=== PATIENT | male | born 1960 | race Caucasian/White ===

== ENCOUNTER 2016-12-12 22:11 | Inpatient (IN) | payer OTHER ==
--- NOTE | ~2016-12-12 | PN ---
Unit #: [id number] #: [id number] Patient: FLORY MUÑOZ [id number] [facility] [address] [place] [address] [id number] I MR#: [id number] NAME: FLORY MUÑOZ ROOM: 86 Age: 56 Sex: M Admission Date: 12/12/2016 : 1960 Attending Physician: Wu Leone M.D. Admitting Physician: Wu Leone M.D. Primary Care Physician: Primary Care Physician Maia JACOBO NOTES DATE 12/17/2016 DISCUSSION The patient requesting "a nerve pill" today. I have explained to the patient that he is already prescribed Neurontin and p.r.n. Vistaril and that other such medication will be provided. He states that he should have a bed open by tomorrow in a local shelter house. Dictated by... Wu Leone M.D. CB/altagracia TD: 12/17/2016 20:43 JOB #: [id number] DARINEL JACOBO NOTES X Wu Leone MD PROGRESS NOTE
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
--- NOTE | ~2016-12-12 | HP ---
Unit #: [id number] #: [id number] Patient: FLORY MUÑOZ [id number] [place] [address] [id number] I MR#: [id number] NAME: FLORY MUÑOZ ROOM: P176 Age: 56 Sex: M Admission Date: 12/12/2016 : 1960 Attending Physician: Wu Leone M.D. Admitting Physician: Wu Leone M.D. Primary Care Physician: Primary Care Physician No HISTORY AND PHYSICAL HISTORY OF PRESENT ILLNESS Flory is a 56 year old admitted to [facility] because of his continued abuse of alcohol. He has had numerous admissions to this facility for treatment of the same. PAST MEDICAL HISTORY 1. Long history of alcohol abuse. 2. History of withdrawal seizures. 3. Hyperlipidemia. PAST SURGICAL HISTORY T and A. ALLERGIES No known drug allergies. SOCIAL HISTORY Smokes 1 pack per day. Drinks at least a case of beer on a daily basis and denies illicit drug use. FAMILY HISTORY Medically noncontributory. REVIEW OF SYSTEMS CONSTITUTIONAL: No fever or chills. HEENT: Denies any sore throat, ear pain or runny nose. CARDIOVASCULAR: Denies chest pain, irregular heart rhythm or palpitations. CHEST: Denies shortness of breath or cough. No hemoptysis. GASTROINTESTINAL: Denies nausea, vomiting, diarrhea or chronic constipation. ENDOCRINE: Denies history of increased thirst or urination. No recent significant weight loss or gain. GENITOURINARY: Denies dysuria, frequency, or hematuria. SKIN: Denies any rashes. He did sustain a laceration over his left brow some days ago. Stitches are in place. He has no complaints. HEMATOLOGIC: Denies history of increased bleeding or bruising. MUSCULOSKELETAL: Denies any hot, swollen joints. No generalized muscle pain. NEUROLOGIC: Denies problems with vision or speech. No frequent, severe headaches. No numbness, tingling or weakness in any extremities. Denies loss of bladder or bowel control. CURRENT MEDICATIONS Unit #: [id number] #: [id number] Patient: FLORY MUÑOZ 1. Detox protocol. 2. Neurontin 300 mg b.i.d. 3. Claritin 10 mg daily. 4. Celexa 20 mg daily. PHYSICAL EXAMINATION GENERAL: Alert, well-nourished, appearing much older than his stated age of 56, in no apparent distress. VITAL SIGNS: Blood pressure 136/90, heart rate 80, respirations 16, temperature 98.6. WEIGHT: 173. HEIGHT: 5 feet 10 inches. SKIN: Warm and dry without rash. He has a laceration over his left brow. There is very good scab formation. The scab appears old and has started to slough off. Blue ethilon sutures are in place. No increased redness, swelling, heat or pus is noted. HEENT: Normocephalic. TMs not viewed. Oral and nasal passages clear. Conjunctivae clear. PERRLA. EOMs intact. NECK: Supple without lymphadenopathy or thyromegaly. HEART: Regular rate and rhythm without murmur. LUNGS: Clear. ABDOMEN: Soft, nontender. : Not done. EXTREMITIES: No evidence of cyanosis, clubbing or edema. Moves all without focal deficit. NEUROLOGICAL: Grossly within normal limits. Cranial Nerves: II: Visual myers are intact. III, IV AND : Extraocular movements are intact. Pupils are equal, round and reactive to light. V: Facial sensation is grossly normal. VII: Facial movements and expression are normal. VIII: Auditory acuity grossly intact. IX, X: Uvula is midline. Phonation is normal. XI: Patient shrugs shoulders and turns head normally. XII: Tongue protrudes in the midline. Sensory and Motor Function: Sensory and motor sensation is grossly normal. Motor: moves all extremities well. Coordination: Gait is normal. Deep Tendon Reflexes: Intact. IMPRESSION 1. Psychiatric admission. 2. Laceration over his left brow sustained some days prior to this admission. RECOMMENDATIONS PSYCHIATRIC: Per psychiatrist. MEDICAL: 1. See no contraindications to participate in facility's activities. 2. Suture removal 7 days after they were placed. MEDICAL PROGNOSIS Good. MEDICAL CONDITION Stable. Dictated by... Unit #: [id number] #: [id number] Patient: TONIFLORY P.A.-C. for Jasmin Garza/eleonora TD: 12/13/2016 22:16 JOB #: [id number] HISTORY AND PHYSICAL X Lakeisha Bean HISTORY AND PHYSICAL
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
--- NOTE | ~2016-12-12 | PN ---
Unit #: [id number] #: [id number] Patient: FLORY MUÑOZ [id number] [facility] [address] [place] [address] [id number] I MR#: [id number] NAME: FLORY MUÑOZ ROOM: 86 Age: 56 Sex: M Admission Date: 12/12/2016 : 1960 Attending Physician: Wu Leone M.D. Admitting Physician: Wu Leone M.D. Primary Care Physician: Primary Care Physician Maia TENA PROGRESS NOTES DATE 12/15/2016 DISCUSSION The patient is in brighter spirits today. He is more hopeful today and reports less in the way of hopelessness. His detox continues uneventfully. He is hopeful that he will be able to gain access to a new long term house upon his discharge. Dictated by... Wu Leone M.D. CB/eleonora TD: 12/15/2016 18:25 JOB #: [id number] [facility] PROGRESS NOTES X Wu Leone MD PROGRESS NOTE
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
--- NOTE | ~2016-12-12 | PN ---
Unit #: [id number] #: [id number] Patient: FLORY MUÑOZ [id number] [facility] [address] [place] [address] [id number] I MR#: [id number] NAME: FLORY MUÑOZ ROOM: 86 Age: 56 Sex: M Admission Date: 12/12/2016 : 1960 Attending Physician: Wu Leone M.D. Admitting Physician: Wu Leone M.D. Primary Care Physician: Primary Care Physician Maia TENA PROGRESS NOTES DATE 12/16/2016 DISCUSSION The patient is resting comfortably today and offers no new complaints. His detox continues uneventfully. Dictated by... Wu Leone M.D. CB/eleonora TD: 12/16/2016 16:28 JOB #: [id number] [facility] PROGRESS NOTES X Wu Leone MD PROGRESS NOTE
[2016-12-13 09:36] LABS: URINE APPEARANCE CLEAR; URINE BILIRUBIN NEG (NEG); URINE BLOOD NEG (NEG); URINE COLOR YELLOW; URINE GLUCOSE NEG (NEG); URINE KETONE NEG (NEG); URINE LEUKOCYTE ESTERASE NEG (NEG); URINE NITRATE NEG (NEG); URINE PROTEIN NEG (NEG); URINE SPECIFIC GRAVITY 1.014 (1.003-1.035); URINE UROBILINOGEN 0.2 MG/DL (NEG)
[2016-12-13 09:40] LABS: BASOPHIL# 0.1 X10e3 (0-0.3); EOSINOPHIL# 0.3 X10e3 (0-0.7); HEMATOCRIT 42.4 % (38.0-50.0); HEMOGLOBIN 14.3 gm/dL (13.0-16.0); LYMPHOCYTE# 1.4 X10e3 (1.0-3.5); LYMPHOCYTE% 25.1 % (17.0-45.0); MEAN CORPUSCULAR HEMOGLOBIN 29.1 PG (28-34); MEAN CORPUSCULAR HGB CONC 33.8 g/dL (30-36); MEAN PLATELET VOLUME 8.8 FL (6.5-11.5); MONOCYTE# 0.5 X10e3 (0-1.0); MONOCYTE% 8.3 % (3.0-12.0); NEUTROPHIL# 3.2 X10e3 (1.5-7.1); NEUTROPHIL% 59.6 % (40-75); PLATELET COUNT 181 X10e3 (140-420); RED BLOOD COUNT 4.94 X10e (3.90-5.60); RED CELL DISTRIBUTION WIDTH 16.2 % (11.0-15.5); WHITE BLOOD COUNT 5.4 X10e3 (4.0-10.5)
[2016-12-13 09:42] LABS: DIFF IND NO
[2016-12-13 10:32] LABS: ALBUMIN SERUM 3.5 g/dL (3.5-5.0); ALKALINE PHOSPHATASE 79 U/L (32-92); ALT (SGPT) 27 U/L (10-40); AST (SGOT) 28 U/L (10-42); BILIRUBIN,TOTAL 0.8 mg/dL (0.2-2.0); BLOOD UREA NITROGEN 8 mg/dL (9-23); CALCIUM SERUM 9.4 mg/dL (8.4-10.2); CARBON DIOXIDE 25 mmol/L (22-31); CHLORIDE 105 mmol/L (100-111); CREATININE SERUM 0.5 mg/dL (0.6-1.4); GLOM FILT RATE Estimated ABOVE60 mL/min (>60); GLUCOSE FASTING 88 mg/dL (70-110); POTASSIUM 4.3 mmol/L (3.5-5.1); PROTEIN TOTAL SERUM 6.3 g/dL (6.0-8.3); SODIUM 143 mmol/L (135-145)
[2016-12-13 11:08] LABS: AMPHETAMINE NEG (NEG); BARBITURATES NEG (NEG); BENZODIAZEPINES POS (NEG); COCAINE NEG (NEG); MARIJUANA NEG (NEG); OPIATES NEG (NEG); TRICYCLIC ANTIDEPRESSANTS NEG (NEG); U METHADONE NEG (NEG)
[2016-12-13 13:54] LABS: THYROID STIMULATING HORMONE 1.97 uIU/ml (0.34-5.60)
[2016-12-13 14:01] LABS: FREE THYROXIN (T4) 0.77 ng/dL (0.58-1.64)
== END 2016-12-18 16:00 | disposition home or self-care (01) | DRG 897 ==
LOC: P1E 22:11
PROVIDERS: Specialist
PROC: HZ2ZZZZ Detoxification Services for Substance Abuse Treatment (ICD-10-PCS; principal; 2016-12-12)
DX: F10.20 Alcohol dependence, uncomplicated (principal); R45.851 Suicidal ideations; F34.1 Dysthymic disorder; E78.5 Hyperlipidemia, unspecified; Z59.0 Homelessness; F17.200 Nicotine dependence, unspecified, uncomplicated; S01.81XA Laceration without foreign body of other part of head, initial encounter
CPT/HCPCS: 80053; 80307; 81003; 84439; 84443; 85025; 86592

== ENCOUNTER 2017-05-15 18:47 | Inpatient (IN) | payer OTHER ==
[~2017-05-15] VITALS: Ht 177.8 cm; Wt 81.6 kg
--- NOTE | ~2017-05-15 | DS ---
Unit #: [id number] #: [id number] Patient: FLORY MUÑOZ [id number] [place] [address] [id number] I MR#: [id number] NAME: FLORY MUÑOZ ROOM: 81 Age: 57 Sex: M Admission Date: 05/15/2017 : 1960 Discharge Date: 05/18/2017 Attending Physician: Wu Leone M.D. Primary Care Physician: Primary Care Physician No DISCHARGE SUMMARY REASON FOR ADMISSION The patient is a 57-year-old white male, admitted for alcohol detox. HOSPITAL COURSE The patient was admitted to the [facility] unit and placed on routine detoxification protocol. His home medications including Celexa, Mobic, Wellbutrin, Vistaril, Flexeril, Lipitor were continued. He was begun on Robitussin DM for cough. The patient's detox was a brief and uneventful one. By 05/18/2017, the patient's detox was complete. He exhibited no signs or symptoms of withdrawal. Denied suicidal ideation. Discharge was ordered. FINAL DIAGNOSES Alcohol use disorder, dysthymic disorder, dyslipidemia, and upper respiratory infection. DISPOSITION ON DISCHARGE The patient is discharged on the following medications: Mobic 15 mg b.i.d. for osteoarthritis, Celexa 20 mg daily for depression, Wellbutrin 100 mg b.i.d. for depression, Vistaril 50 mg q.6 hours p.r.n. anxiety, Flexeril 10 mg t.i.d. for muscle relaxation, Lipitor 80 mg at bedtime for dyslipidemia, Robitussin DM for cough, Neosporin apply to affected areas b.i.d. for skin wounds. DISCHARGE INSTRUCTIONS No dietary or physical restrictions were placed on the patient at the time of discharge. FOLLOWUP Followup will take place through the auspices of community mental health resources. PROGNOSIS The patient's prognosis is considered fair. Dictated by... Wu Leone M.D. CB/india TD: 05/20/2017 11:19 Unit #: [id number] #: [id number] Patient: FLORY MUÑOZ JOB #: [id number] DISCHARGE SUMMARY Page 1 of 1 X Wu Leone MD DISCHARGE SUMMARY
--- NOTE | ~2017-05-15 | PN ---
Unit #: [id number] #: [id number] Patient: FLORY MUÑOZ [id number] [facility] [address] [place] [address] [id number] I MR#: [id number] NAME: FLORY MUÑOZ ROOM: 81 Age: 57 Sex: M Admission Date: 05/15/2017 : 1960 Attending Physician: uW Leone M.D. Admitting Physician: Wu Leone M.D. Primary Care Physician: Primary Care Physician Maia TENA PROGRESS NOTES DATE 05/17/2017 DISCUSSION The patient continues to complain of significant symptoms of alcohol withdrawal. He states that he is expressing interest in placement in a long-term house following discharge and states that he has discussed that with his psychologist social. Dictated by... Wu Leone M.D. CB/altagracia TD: 05/17/2017 22:44 JOB #: [id number] DARINEL PROGRESS NOTES Page 1 of 1 X Wu Leone MD PROGRESS NOTE
--- NOTE | ~2017-05-15 | HP ---
Unit #: [id number] #: [id number] Patient: FLORY MUÑOZ [id number] [place] [address] [id number] I MR#: [id number] NAME: FLORY MUÑOZ ROOM: P181 Age: 57 Sex: M Admission Date: 05/15/2017 : 1960 Attending Physician: Wu Leone M.D. Admitting Physician: Wu Leone M.D. Primary Care Physician: Primary Care Physician No HISTORY AND PHYSICAL HISTORY OF PRESENT ILLNESS Flory is a 57 year old admitted to [facility] because of his continued abuse of alcohol. He has had other admissions to this facility for the same. PAST MEDICAL HISTORY 1. Long history of alcohol abuse. 2. History of withdrawal seizures. 3. Hyperlipidemia. PAST SURGICAL HISTORY T & A. ALLERGIES No known drug allergies. SOCIAL HISTORY Smokes one pack per day. Drinks at least a case of beer on a daily basis and denies illicit drug use. FAMILY HISTORY Medically noncontributory. REVIEW OF SYSTEMS CONSTITUTIONAL: No fever or chills. HEENT: Denies any sore throat, ear pain or runny nose. CARDIOVASCULAR: Denies chest pain, irregular heart rhythm or palpitations. CHEST: Denies shortness of breath or cough. No hemoptysis. GASTROINTESTINAL: Denies nausea, vomiting, diarrhea or chronic constipation. ENDOCRINE: Denies history of increased thirst or urination. No recent significant weight loss or gain. GENITOURINARY: Denies dysuria, frequency, or hematuria. SKIN: Denies any rashes. HEMATOLOGIC: Denies history of increased bleeding or bruising. MUSCULOSKELETAL: Denies any hot, swollen joints. No generalized muscle pain. NEUROLOGIC: Denies problems with vision or speech. No frequent, severe headaches. No numbness, tingling or weakness in any extremities. Denies loss of bladder or bowel control. CURRENT MEDICATIONS 1. Detox protocol. Unit #: [id number] #: [id number] Patient: FLORY MUÑOZ 2. Lipitor 80 mg q day. 3. Celexa 20 mg q day. 4. Wellbutrin 100 mg b.i.d. 5. Mobic 15 mg b.i.d. PHYSICAL EXAMINATION GENERAL: Alert, appearing much older than his stated age of 57, in no apparent distress. VITAL SIGNS: Blood pressure 156/88, heart rate 100, respirations 16, temperature 98.6. WEIGHT: 180. HEIGHT: 5 foot 10 inches. SKIN: He has blisters on his feet. HEENT: Normocephalic. TMs not viewed. Oral and nasal passages clear. Conjunctivae clear. Pupils equal, round and reactive to light and accommodation. Extraocular movements intact. NECK: Supple without lymphadenopathy or thyromegaly. HEART: Regular rate and rhythm without murmur. LUNGS: Clear. ABDOMEN: Soft, nontender. : Not done. EXTREMITIES: No evidence of cyanosis, clubbing or edema. Moves all extremities without focal deficit. NEUROLOGICAL: Grossly within normal limits. Cranial Nerves: II: Visual myers are intact. III, IV AND : Extraocular movements are intact. Pupils are equal, round and reactive to light. V: Facial sensation is grossly normal. VII: Facial movements and expression are normal. VIII: Auditory acuity grossly intact. IX, X: Uvula is midline. Phonation is normal. XI: Patient shrugs shoulders and turns head normally. XII: Tongue protrudes in the midline. Sensory and Motor Function: Sensory and motor sensation is grossly normal. Motor: moves all extremities well. Coordination: Gait is normal. Deep Tendon Reflexes: Intact. IMPRESSION 1. Psychiatric admission. 2. Blisters on his feet. RECOMMENDATIONS PSYCHIATRIC: Per psychiatrist. MEDICAL: 1. I see no contraindications to participating in facility's activities. 2. Neosporin ointment to areas on his feet b.i.d. MEDICAL PROGNOSIS Good. MEDICAL CONDITION Stable. Dictated by... Laxmi BegumAPinky. for Unit #: [id number] #: [id number] Patient: FLORY MUÑOZ Jasmin Garza TD: 05/16/2017 21:02 JOB #: [id number] HISTORY AND PHYSICAL Page 1 of 1 X Lakeisha Bean HISTORY AND PHYSICAL
--- NOTE | ~2017-05-15 | PA ---
Unit #: [id number] #: [id number] Patient: FLORY MUÑOZ [id number] [place] [address] [id number] I MR#: [id number] NAME: FLORY MUÑOZ ROOM: P181 Age: 57 Sex: M Admission Date: 05/15/2017 : 1960 Date of Assessment: 05/16/2017 Attending Physician: Wu Leone M.D. Admitting Physician: Wu Leone M.D. Primary Care Physician: Primary Care Physician No PSYCHIATRIC ASSESSMENT IDENTIFYING INFORMATION The patient is a 57-year-old white male admitted with reported with recurrent abuse of alcohol. CHIEF COMPLAINT None given. INFORMANT Patient, reliability is fair. HISTORY OF PRESENT ILLNESS The patient is a 57-year-old white male with a history of multiple previous admission to this facility. He was last discharged from this facility on 12/08/2016. The patient reports that he has been drinking heavily again and reports suicidal ideation with plan to "drink himself to ." When seen today, the patient is sleeping soundly and cannot be aroused for interview. PAST PSYCHIATRIC HISTORY Reviewed, no changes. PAST MEDICAL HISTORY Reviewed, no changes. MEDICATIONS Celexa, Neurontin, meloxicam, bupropion, guaifenesin, hydroxyzine, multivitamins, Flexeril, and atorvastatin. ALLERGIES None. FAMILY HISTORY Reviewed, no changes. SOCIAL HISTORY Reviewed, no changes. MENTAL STATUS EXAMINATION Examination at this time reveals the patient to be an obese disheveled white male appearing stated age. He is soundly sleeping and cannot be aroused for interview. ASSETS AND LIABILITIES Unit #: [id number] #: [id number] Patient: FLORY MUÑOZ The patient's assets are to be assessed. Liabilities: Ongoing substance use. Lack of resources, homelessness. DIAGNOSTIC IMPRESSION 1. Alcohol use disorder. 2. Mood disorder unspecified. 3. Obesity. TREATMENT PLAN The patient remains hospitalized for safety and stabilization. Routine detoxification protocol has been initiated, and we will restart previously prescribed medications. ESTIMATED LENGTH OF STAY 5 to 7 days. The followup will take place through the auspices of [facility] mental health resources. Dictated by... Wu Leone M.D. Ana TD: 05/16/2017 15:04 JOB #: [id number] PSYCHIATRIC ASSESSMENT Page 1 of 1 X Wu Leone MD PSYCHIATRIC ASSESSMENT
[2017-05-16 09:32] LABS: BASOPHIL% 0.6 % (0-2.5); DIFF IND NO; EOSINOPHIL# 0.2 X10e3 (0-0.7); HEMATOCRIT 41.1 % (38.0-50.0); LYMPHOCYTE# 2.2 X10e3 (1.0-3.5); MEAN CORPUSCULAR HGB CONC 34.1 g/dL (30-36); MEAN PLATELET VOLUME 8.7 FL (6.5-11.5); MONOCYTE# 0.7 X10e3 (0-1.0); MONOCYTE% 8.7 % (3.0-12.0); NEUTROPHIL# 5.3 X10e3 (1.5-7.1); NEUTROPHIL% 62.7 % (40-75); PLATELET COUNT 200 X10e3 (140-420); RED BLOOD COUNT 4.84 X10e (3.90-5.60); RED CELL DISTRIBUTION WIDTH 13.9 % (11.0-15.5); WHITE BLOOD COUNT 8.4 X10e3 (4.0-10.5)
[2017-05-16 09:47] LABS: ALBUMIN SERUM 3.8 g/dL (3.5-5.0); BILIRUBIN,TOTAL 0.5 mg/dL (0.2-2.0); BUN/CREATININE RATIO 14.28; CALCIUM SERUM 8.9 mg/dL (8.4-10.2); CREATININE SERUM 0.7 mg/dL (0.6-1.4); GLOM FILT RATE Estimated 104.1 mL/min (>60); POTASSIUM 4.8 mmol/L (3.5-5.1); PROTEIN TOTAL SERUM 6.6 g/dL (6.0-8.3)
[2017-05-18 09:35] LABS: URINE APPEARANCE CLEAR; URINE BILIRUBIN NEG (NEG); URINE BLOOD NEG (NEG); URINE COLOR DK YELLOW; URINE GLUCOSE NEG (NEG); URINE KETONE NEG (NEG); URINE LEUKOCYTE ESTERASE TRACE (NEG); URINE NITRATE NEG (NEG); URINE PH 7.5 (5-8); URINE PROTEIN NEG (NEG); URINE SPECIFIC GRAVITY 1.012 (1.003-1.035); URINE UROBILINOGEN 0.2 MG/DL (NEG)
[2017-05-18 09:38] LABS: U HYALINE CASTS AUWI 0-2 /[LPF]; URBCS1 AUWI 0-2 /[HPF] (0-2); URINE BACTERIA AUWI NEG (NEGATIVE); URINE SQUAMOUS EPITHELIAL CELL NONE SEEN /[HPF]
[2017-05-18 10:25] LABS: AMPHETAMINE NEG (NEG); BARBITURATES NEG (NEG); BENZODIAZEPINES POS (NEG); COCAINE NEG (NEG); MARIJUANA NEG (NEG); OPIATES NEG (NEG); TRICYCLIC ANTIDEPRESSANTS NEG (NEG); U METHADONE NEG (NEG)
== END 2017-05-18 15:55 | disposition home or self-care (01) | DRG 897 ==
LOC: P1E 21:33
PROVIDERS: Specialist
PROC: HZ2ZZZZ Detoxification Services for Substance Abuse Treatment (ICD-10-PCS; principal; 2017-05-15)
DX: F10.10 Alcohol abuse, uncomplicated (principal); F39 Unspecified mood [affective] disorder; E78.5 Hyperlipidemia, unspecified; F34.1 Dysthymic disorder; J06.9 Acute upper respiratory infection, unspecified; F17.200 Nicotine dependence, unspecified, uncomplicated; E66.9 Obesity, unspecified
CPT/HCPCS: 80053; 80307; 81003; 85025; 86592

== ENCOUNTER 2017-06-12 22:13 | Inpatient (IN) | payer OTHER, MEDICAID ==
[~2017-06-12] VITALS: Ht 177.8 cm; Wt 88.0 kg
--- NOTE | ~2017-06-12 | PN ---
Unit #: [id number] #: [id number] Patient: FLORY MUÑOZ [id number] [facility] [address] [place] [address] [id number] I MR#: [id number] NAME: FLORY MUÑOZ ROOM: P209 Age: 57 Sex: M Admission Date: 06/13/2017 : 1960 Attending Physician: Wu Leone M.D. Admitting Physician: Wu Leone M.D. Primary Care Physician: Primary Care Physician Maia JACOBO NOTES DATE 06/14/2017 DISCUSSION The patient did not receive Ativan at noon with his CIWA score not scoring, but he does complain of significant physical discomfort and does appear to be in some physical discomfort during today's interview. He remains somewhat hopeless related to his current living situation, i.e., homelessness. I have suggested strongly to the patient that he begin assiduously working towards assisted house or other placement at the time of discharge which will likely take place within the next few days. Dictated by... Wu Leone M.D. CB/nick TD: 06/14/2017 14:02 JOB #: [id number] DARINEL JACOBO NOTES Page 1 of 1 X Wu Leone MD PROGRESS NOTE
--- NOTE | ~2017-06-12 | PA ---
Unit #: [id number] #: [id number] Patient: FLORY MUÑOZ [id number] [place] [address] [id number] I MR#: [id number] NAME: FLORY MUÑOZ ROOM: P209 Age: 57 Sex: M Admission Date: 06/13/2017 : 1960 Date of Assessment: 06/13/2017 Attending Physician: Wu Leone M.D. Admitting Physician: Wu Leone M.D. Primary Care Physician: Primary Care Physician No PSYCHIATRIC ASSESSMENT IDENTIFYING INFORMATION The patient is a 57-year-old homeless white male admitted with recurrent abuse of alcohol. CHIEF COMPLAINT None given. INFORMANT(S) Chart. Patient cannot be aroused for interview. HISTORY OF PRESENT ILLNESS The patient is a 57-year-old homeless white male with a history of multiple previous admissions to this facility the last of which ended on 05/18/2017. He was readmitted after presenting to this facility with a blood alcohol of 0.234. The patient was reporting that he was suicidal with plan to "drink himself to ." He has been drinking up to 20 to 30 beers on daily basis along with 2 shots of whiskey per his report. He reports that the stressors include financial stressors as well as relationship issues which have caused his recent relapse. For more complete history of present illness, please refer to previously dictated notes. PAST PSYCHIATRIC HISTORY Reviewed, no changes. PAST MEDICAL HISTORY Reviewed, no changes. MEDICATION(S) 1. Hydroxyzine. 2. Citalopram. 3. Cyclobenzaprine. 4. Lipitor. 5. Bupropion. 6. Multivitamin. 7. Ibuprofen. 8. Gabapentin. 9. Guaifenesin. ALLERGIES None. FAMILY HISTORY Unit #: [id number] #: [id number] Patient: FLORY MUÑOZ Reviewed, no changes. SOCIAL HISTORY Reviewed, no changes. MENTAL STATUS EXAMINATION Examination at this time reveals the patient to be an obese, disheveled, soundly sleeping white male. Multiple attempts to arouse the patient are unsuccessful. ASSETS AND LIABILITIES The patient's assets are to be assessed. Liabilities: Homelessness, lack of resources, ongoing substance use, lack of investment in treatment. DIAGNOSTIC IMPRESSION 1. Alcohol use disorder. 2. Dysthymic disorder. 3. Dyslipidemia. 4. Upper respiratory tract infection. TREATMENT PLAN The patient remains hospitalized for safety and stabilization. He will be restarted on previous psychotropic medications, and a routine detoxification protocol for alcohol has been initiated. Given his threats of suicide at the time of admission, suicide precautions will be put in place. The patient will participate in appropriate order of milieu activities. ESTIMATED LENGTH OF STAY 3 to 5 days. Dictated by... Wu Leone M.D. Ana TD: 06/13/2017 13:44 JOB #: [id number] PSYCHIATRIC ASSESSMENT Page 1 of 1 X Wu Leone MD X PSYCHIATRIC ASSESSMENT
--- NOTE | ~2017-06-12 | HP ---
Unit #: [id number] #: [id number] Patient: FLORY MUÑOZ [id number] [facility] [address] [place] [address] [id number] I MR#: [id number] NAME: FLORY MUÑOZ ROOM: P209 Age: 57 Sex: M Admission Date: 06/13/2017 : 1960 Attending Physician: Wu Leone M.D. Admitting Physician: Wu Leone M.D. Primary Care Physician: Primary Care Physician No HISTORY AND PHYSICAL DATE OF ADMISSION 06/13/2017 HISTORY OF PRESENT ILLNESS Flory is a 57 year old admitted to [address] [place] [address] because of his continued abuse of alcohol The patient was seen and H and P dated 05/16/2017 was reviewed. This is current. No changes. Please see H and P dated 05/16/2017. Dictated by... Lakeisha Bean P.A.-C. for Jamsin Garza/altagracia TD: 06/13/2017 20:38 JOB #: [id number] HISTORY AND PHYSICAL Page 1 of 1 X Lakeisha Bean HISTORY AND PHYSICAL
--- NOTE | ~2017-06-12 | DS ---
Unit #: [id number] #: [id number] Patient: FLORY MUÑOZ [id number] [place] [address] [id number] I MR#: [id number] NAME: FLORY MUÑOZ [facility]OM[facility] Age: 57 Sex: M Admission Date: 06/13/2017 : 1960 Discharge Date: 06/15/2017 Attending Physician: Wu Leone M.D. Primary Care Physician: No Primary Care Physician DISCHARGE SUMMARY REASON FOR ADMISSION The patient is a 57-year-old white male admitted with recurrence of suicidal ideation and alcohol abuse. HOSPITAL COURSE Patient was admitted to the [address] [place] [address] unit and placed on a routine detoxification program for alcohol. Home medications were continued. The patient's stay in the hospital was a brief and uneventful one. His detox when smoothly and by 06/15/2017 the patient was requesting discharge. It was so ordered. FINAL DIAGNOSES 1. Alcohol use disorder. 2. Dysthymic disorder. 3. Dyslipidemia. DISPOSITION ON DISCHARGE The patient was discharged on the following medications: 1. Citalopram 20 mg daily for depression. 2. Vistaril 50 mg q.6 hours p.r.n. anxiety. 3. Flexeril 10 mg 3 times daily for muscle relaxation. 4. Lipitor 80 mg nightly for dyslipidemia. 5. Wellbutrin 100 mg twice daily for depression. 6. Motrin 400 mg 3 times daily p.r.n. pain. 7. Neurontin 300 mg once daily for chronic pain. 8. Humibid DM 1 tablet twice daily p.r.n. cough. DIET AND ACTIVITY No dietary or physical restrictions were placed on the patient at the time of discharge. FOLLOWUP Followup will take place through the auspices of [facility] resourced. PROGNOSIS The patient's prognosis is considered fair. Dictated by... Wu Leone M.D. Unit #: [id number] #: [id number] Patient: FLORY MUÑOZ DIOR/dianne TD: 06/19/2017 10:13 JOB #: [id number] DISCHARGE SUMMARY Page 1 of 1 X Wu Leone MD X DISCHARGE SUMMARY
[2017-06-14 09:42] LABS: BASOPHIL# 0.1 X10e3 (0-0.3); BASOPHIL% 0.8 % (0-2.5); EOSINOPHIL# 0.1 X10e3 (0-0.7); EOSINOPHIL% 1.3 % (0.0-7.0); HEMATOCRIT 45.3 % (38.0-50.0); HEMOGLOBIN 15.3 gm/dL (13.0-16.0); LYMPHOCYTE# 1.7 X10e3 (1.0-3.5); LYMPHOCYTE% 21.1 % (17.0-45.0); MEAN CELL VOLUME 84.8 FL (83-96); MEAN CORPUSCULAR HEMOGLOBIN 28.6 PG (28-34); MEAN CORPUSCULAR HGB CONC 33.8 g/dL (30-36); MONOCYTE# 0.5 X10e3 (0-1.0); MONOCYTE% 6.4 % (3.0-12.0); NEUTROPHIL# 5.8 X10e3 (1.5-7.1); NEUTROPHIL% 70.4 % (40-75); PLATELET COUNT 168 X10e3 (140-420); RED BLOOD COUNT 5.34 X10e (3.90-5.60); WHITE BLOOD COUNT 8.3 X10e3 (4.0-10.5)
[2017-06-14 09:54] LABS: DIFF IND NO
[2017-06-14 10:01] LABS: ALBUMIN SERUM 3.9 g/dL (3.5-5.0); BUN/CREATININE RATIO 18.57; CREATININE SERUM 0.7 mg/dL (0.6-1.4); GLOM FILT RATE Estimated 104.1 mL/min (>60); POTASSIUM 3.7 mmol/L (3.5-5.1); PROTEIN TOTAL SERUM 6.7 g/dL (6.0-8.3)
== END 2017-06-15 15:18 | disposition home or self-care (01) | DRG 897 ==
LOC: P2S 06-13 00:46
PROVIDERS: Specialist
PROC: HZ2ZZZZ Detoxification Services for Substance Abuse Treatment (ICD-10-PCS; principal; 2017-06-13)
DX: F10.20 Alcohol dependence, uncomplicated (principal); R45.851 Suicidal ideations; F34.1 Dysthymic disorder; E78.5 Hyperlipidemia, unspecified; J06.9 Acute upper respiratory infection, unspecified
CPT/HCPCS: 80053; 85025; 86592